=== PATIENT | male | born 1950 | race Two or more races ===

== ENCOUNTER 2017-08-14 12:01 | Inpatient (IN) | payer MEDICARE, OTHER ==
[~2017-08-14] VITALS: Ht 172.7 cm; Wt 118.5 kg
[2017-08-14 14:23] LABS: Urine Bacteria NONE SEEN /hpf (None Seen); Urine Blood Negative /uL (Negative); Urine Mucus FEW (None Seen); Urine Specific Gravity 1.035 (1.001-1.035); Urine WBC 2 /hpf (0 - 3)
[2017-08-14 14:42] LABS: Basophils # (auto) 0 uL; Basophils % (auto) 0.3 % (0.0-2.0); Eosinophils # (auto) 0 uL; Hemoglobin 13.3 g/dL (13.5-17.5); Lymphocytes # (auto) 0.8 uL; Mean Corpuscular Hgb Conc. 32.1 g/dL (32.0-36.0); Monocytes # (auto) 0.6 uL; Neutrophils # (auto) 12.5 uL; Nucleated Red Blood Cells % 0.1 %; White Blood Cell 13.9 10^3/uL (4.4-10.8)
[2017-08-14 14:44] LABS: Hematocrit 41.4 % (41.0-53.0); Lymphocytes % (auto) 5.6 % (10.0-50.0); Mean Corpuscular Hemoglobin 24.1 pg (28.0-32.0); Mean Corpuscular Volume 75.2 fL (80.0-100.0); Monocytes % (auto) 4.3 % (0.0-12.0); Neutrophils % (auto) 89.8 % (37.0-80.0); Platelet Count (auto) 180 10^3/uL (140-450); Red Blood Cells 5.51 10^6/uL (4.5-5.90); Red Cell Distribution Width 15.4 % (11.8-14.3)
[2017-08-14 15:18] LABS: Amylase 43 U/L (25-115); Lipase 66 U/L (73-393)
[2017-08-14 15:22] LABS: Alanine Aminotransferase 109 U/L (16-61); Albumin 3.9 g/dL (3.4-5.0); Alkaline Phosphatase 98 U/L (45-117); Anion Gap 9 (5-15); Aspartate Aminotransferase 94 U/L (15-37); BUN/Creatinine Ratio 19.8; Bilirubin, Total 0.8 mg/dL (0.2-1.0); Blood Urea Nitrogen 16 mg/dL (7-18); Calcium 8.8 mg/dL (8.5-10.1); Carbon Dioxide 28 mmol/L (21-32); Chloride 105 mmol/L (98-107); GFR African American 123 mL/min; GFR Non-African American 102 mL/min; Glucose 148 mg/dL (74-106); Magnesium 2.8 mg/dL (1.6-2.6); Sodium 142 mmol/L (136-145); Total Protein 7.9 g/dL (6.4-8.2)
[2017-08-14] MEDS ORDERED: ONDANSETRON HCL 4 MG/2 ML VIAL IV ONE (16:00)
[2017-08-14] MEDS ORDERED: MORPHINE SULFATE 8mg/ml INJ SDV IV ONE ×2 (16:00→17:45)
[2017-08-14] MEDS ORDERED: MORPHINE SULFATE 10 MG/ML INJ 1ML SDV IV ONE (16:15)
[2017-08-14] MEDS ORDERED: PIPERACILLIN-TAZO 4.5GM 100 ML IV ONE (16:45)
[2017-08-14] MEDS ORDERED: metroNIDAZOLE 500MG/100ML 100 ML IV ONE (16:45)
[2017-08-14] MEDS ORDERED: MORPHINE SULFATE 10 MG/5 ML ORAL SOLN PO ONE (18:30)
[2017-08-14] MEDS ORDERED: cefTRIAXone 1GM/10ml IVPUSH 10 ML IV ONE (18:45)
[2017-08-14] MEDS ORDERED: DEXTROSE (50%) 50ML SYRG IV PRN (18:45)
[2017-08-14] MEDS ORDERED: ENALAPRILAT 1.25 MG/ML-1ML VIAL IV PRN (18:45)
[2017-08-14] MEDS ORDERED: cloNIDine HCL 0.1 MG TAB PO PRN (18:45)
[2017-08-14] MEDS: SODIUM CHLORIDE 0.9% 1,000 ML IV SCH (19:29)
[2017-08-14] MEDS ORDERED: TEMAZEPAM 15 MG CAP PO PRN (19:30)
[2017-08-14] MEDS ORDERED: DOCUSATE SOD 100 MG CAP PO PRN (19:30)
[2017-08-14] MEDS ORDERED: ACETAMINOPHEN 325 MG TAB PO PRN (19:30)
[2017-08-14] MEDS ORDERED: ONDANSETRON HCL 4 MG/2 ML VIAL IV PRN (19:30)
[2017-08-14] MEDS ORDERED: MORPHINE SULFATE 8mg/ml INJ SDV IV PRN (19:30)
[2017-08-14] MEDS: metroNIDAZOLE 500MG/100ML 100 ML IV SCH (19:43)
[2017-08-14] MEDS ORDERED: SODIUM CHLORIDE 0.9% 2,000 ML IV ONE (19:45)
[2017-08-14] MEDS: HYDROcodone-ACET 5/325MG TAB PO PRN (19:52)
[2017-08-14 21:36] LABS: INR 0.98 (0.9-1.15); Prothrombin Time 10.5 sec (9.27-12.13)
[2017-08-14] MEDS: InsuLIN REG 1unit/0.01ml Soln (100units/ml) SC SCH (22:00)
[2017-08-14] MEDS: ACCU-CHEK COMFORT CURVE STRIP VI SCH (22:00)
[2017-08-14] MEDS ORDERED: IBUP600T27 PO (22:02)
[2017-08-14] MEDS: ASCORBIC ACID 500 MG TAB PO SCH (22:29)
[2017-08-15 00:02] VITALS: BP 127/71
[2017-08-15] MEDS: SODIUM CHLORIDE 0.9% 1,000 ML IV SCH ×3 (04:33→21:56)
[2017-08-15 05:44] VITALS: BP 126/74
[2017-08-15] MEDS: ACCU-CHEK COMFORT CURVE STRIP VI SCH ×2 (05:58→11:27)
[2017-08-15] MEDS: InsuLIN REG 1unit/0.01ml Soln (100units/ml) SC SCH ×2 (05:58→11:27)
[2017-08-15] MEDS: metroNIDAZOLE 500MG/100ML 100 ML IV SCH ×3 (05:58→21:56)
[2017-08-15 06:49] LABS: Basophils # (auto) 0 uL; Basophils % (auto) 0.3 % (0.0-2.0); Eosinophils # (auto) 0.1 uL; Eosinophils % (auto) 0.7 % (0.0-7.0); Hematocrit 38.9 % (41.0-53.0); Hemoglobin 12.6 g/dL (13.5-17.5); Lymphocytes # (auto) 1.2 uL; Lymphocytes % (auto) 12.3 % (10.0-50.0); Mean Corpuscular Hemoglobin 24.6 pg (28.0-32.0); Mean Corpuscular Hgb Conc. 32.3 g/dL (32.0-36.0); Mean Corpuscular Volume 76.3 fL (80.0-100.0); Monocytes # (auto) 0.7 uL; Monocytes % (auto) 7.4 % (0.0-12.0); Neutrophils # (auto) 7.8 uL; Neutrophils % (auto) 79.3 % (37.0-80.0); Platelet Count (auto) 149 10^3/uL (140-450); Red Cell Distribution Width 15.2 % (11.8-14.3); White Blood Cell 9.8 10^3/uL (4.4-10.8)
[2017-08-15 07:04] LABS: Albumin 3.1 g/dL (3.4-5.0); Bilirubin, Total 0.8 mg/dL (0.2-1.0); Calcium 7.7 mg/dL (8.5-10.1); Total Protein 6.8 g/dL (6.4-8.2)
[2017-08-15 07:16] VITALS: BP 138/61
[2017-08-15] MEDS: cefTRIAXone 1GM/10ml IVPUSH 10 ML IV SCH (09:20)
[2017-08-15] MEDS: MULTIPLE VITAMIN TAB PO SCH (09:21)
[2017-08-15] MEDS: ASCORBIC ACID 500 MG TAB PO SCH ×2 (09:21→21:56)
[2017-08-15] MEDS: ZINC SULFATE 220 MG CAP PO SCH (09:21)
[2017-08-15 11:59] VITALS: BP 124/85
[2017-08-15 16:00] VITALS: BP 134/76
[2017-08-15 22:57] VITALS: BP 102/53
[2017-08-16 04:54] VITALS: BP 102/54
[2017-08-16] MEDS: metroNIDAZOLE 500MG/100ML 100 ML IV SCH ×3 (05:54→21:51)
[2017-08-16 06:54] LABS: INR 1.03 (0.9-1.15); Partial Thromboplastin Time 27.9 sec (23.78-33.04)
[2017-08-16] MEDS ORDERED: ceFAZolin 1GM/100ML 100 ML IV ONE (07:18)
[2017-08-16] MEDS ORDERED: SUCCINYLCHOLINE CHLORIDE 20 MG/ML 10ML VIAL IV ONE (07:19)
[2017-08-16] MEDS ORDERED: LIDOCAINE HCL 2 %PF INJ 10ML AMP IJ ONE (07:26)
[2017-08-16] MEDS ORDERED: MIDAZOLAM HCL 1MG/1ML-2 ML VIAL ONE (07:26)
[2017-08-16] MEDS ORDERED: PROPOFOL 10 MG/ML 20 ML IV ONE (07:26)
[2017-08-16] MEDS ORDERED: ROCURONIUM 10MG/ML 10ML VIAL IV ONE (07:27)
[2017-08-16] MEDS ORDERED: ONDANSETRON HCL 4 MG/2 ML VIAL IV ONE (07:45)
[2017-08-16] MEDS ORDERED: MORPHINE SULFATE 8mg/ml INJ SDV IV PRN (07:45)
[2017-08-16] MEDS ORDERED: ACCU-CHEK COMFORT CURVE STRIP VI ONE (07:45)
[2017-08-16] MEDS ORDERED: NALOXONE HCL 0.4 MG/ML VIAL IV PRN (07:45)
[2017-08-16] MEDS ORDERED: fentaNYL CITRATE 100 MCG/2 ML VL ONE (08:02)
[2017-08-16] MEDS ORDERED: KETOROLAC TROMETH 30 MG/ML 1ML VIAL ONE (08:23)
[2017-08-16] MEDS ORDERED: ePHEDrine SULFATE 50 MG/ML AMP ONE (08:26)
[2017-08-16] MEDS ORDERED: ATROPINE SULF 0.5 MG/5ML SYR ONE (08:31)
[2017-08-16] MEDS ORDERED: ATROPINE SULFATE 0.4 MG/1 ML VIAL ONE (08:32)
[2017-08-16] MEDS ORDERED: GLYCOPYRROLATE 0.2 MG/ML 1ML VIAL ONE (08:41)
[2017-08-16] MEDS ORDERED: NEOSTIGMINE 1 MG/ML INJ (10mg/10ML VIAL) ONE (08:41)
[2017-08-16] MEDS: cefTRIAXone 1GM/10ml IVPUSH 10 ML IV SCH (09:00)
[2017-08-16] MEDS: ASCORBIC ACID 500 MG TAB PO SCH ×2 (09:47→21:50)
[2017-08-16] MEDS: MULTIPLE VITAMIN TAB PO SCH (09:47)
[2017-08-16] MEDS: ZINC SULFATE 220 MG CAP PO SCH (09:47)
[2017-08-16] MEDS: SODIUM CHLORIDE 0.9% 1,000 ML IV SCH (11:33)
[2017-08-16 13:00] VITALS: BP 101/58
[2017-08-16 17:00] VITALS: BP 104/60
[2017-08-16 22:00] VITALS: BP 113/65
[2017-08-17] VITALS (7 sets, daily range): BP systolic 103–122; BP diastolic 67–74
[2017-08-17] MEDS: SODIUM CHLORIDE 0.9% 1,000 ML IV SCH ×2 (01:00→15:16)
[2017-08-17] MEDS: metroNIDAZOLE 500MG/100ML 100 ML IV SCH ×3 (05:59→22:00)
[2017-08-17] MEDS: HYDROcodone-ACET 5/325MG TAB PO PRN (09:56)
[2017-08-17] MEDS: cefTRIAXone 1GM/10ml IVPUSH 10 ML IV SCH (09:56)
[2017-08-17] MEDS: ASCORBIC ACID 500 MG TAB PO SCH ×2 (09:56→21:59)
[2017-08-17] MEDS: ZINC SULFATE 220 MG CAP PO SCH (09:56)
[2017-08-17] MEDS: MULTIPLE VITAMIN TAB PO SCH (09:57)
[2017-08-18] MEDS: SODIUM CHLORIDE 0.9% 1,000 ML IV SCH (03:47)
[2017-08-18 05:00] VITALS: BP 116/81
[2017-08-18] MEDS: metroNIDAZOLE 500MG/100ML 100 ML IV SCH ×2 (06:14→14:24)
[2017-08-18 08:00] VITALS: BP_SYST 118; BP_SYST 127; BP_DIAS 51; BP_DIAS 78
[2017-08-18] MEDS ORDERED: TRAM50TA2 PO (09:45)
[2017-08-18] MEDS ORDERED: DOCU-94 PO (09:46)
[2017-08-18] MEDS ORDERED: PANT40TA2 PO (09:46)
[2017-08-18] MEDS: MULTIPLE VITAMIN TAB PO SCH (09:50)
[2017-08-18] MEDS: ASCORBIC ACID 500 MG TAB PO SCH (09:50)
[2017-08-18] MEDS: cefTRIAXone 1GM/10ml IVPUSH 10 ML IV SCH (09:50)
[2017-08-18] MEDS: ZINC SULFATE 220 MG CAP PO SCH (09:50)
[2017-08-18] MEDS: HYDROcodone-ACET 5/325MG TAB PO PRN ×2 (09:51→16:19)
[2017-08-18 11:00] VITALS: BP 125/67
[2017-08-18 15:00] VITALS: BP 113/66
== END 2017-08-18 16:38 | disposition home or self-care (01) | DRG 418 ==
LOC: ER 12:04 → OVERFLOW 12:05 → WEST WING 20:55
PROVIDERS: ADMIT Internal Medicine; ATTEND Internal Medicine
PROC: 0FT44ZZ Resection of Gallbladder, Percutaneous Endoscopic Approach (ICD-10-PCS; principal; 2017-08-16 07:46)
DX: K80.00 Calculus of gallbladder with acute cholecystitis without obstruction (principal); R65.10 Systemic inflammatory response syndrome (SIRS) of non-infectious origin without acute organ dysfunction; E66.01 Morbid (severe) obesity due to excess calories; E11.9 Type 2 diabetes mellitus without complications; K42.9 Umbilical hernia without obstruction or gangrene; Z68.39 Body mass index [BMI] 39.0-39.9, adult; D63.8 Anemia in other chronic diseases classified elsewhere; E83.41 Hypermagnesemia; E86.0 Dehydration; G47.30 Sleep apnea, unspecified
CPT/HCPCS: 36415; 71045; 74176; 76705; 80053; 81001; 82150; 82247; 82962; 83036; 83690; 83735; 84484; 85025; 85610; 85730; 86850; 86900; 86901; 87040; 93005; 96365; 96375; 97116; 97163; 97530; J0330; J0461; J0690; J1885; J2250; J2405; J2543; J2704; J3490

== ENCOUNTER → 2017-09-15 | Outpatient (CLI) | payer MEDICARE, OTHER ==
[~2017-09-15] MED LIST: DOCU-94 PO; PANT40TA2 PO; TRAM50TA2 PO
[2017-09-15 14:18] LABS: Potassium 4.2 mmol/L (3.5-5.1)
[2017-09-15 14:19] LABS: Albumin 3.5 g/dL (3.4-5.0); BUN/Creatinine Ratio 18.1; Bilirubin, Total 0.6 mg/dL (0.2-1.0); Calcium 8.3 mg/dL (8.5-10.1); Total Protein 7.6 g/dL (6.4-8.2)
== END | disposition home or self-care (01) ==
LOC: LAB 12:43
PROVIDERS: ATTEND Internal Medicine
DX: E11.9 Type 2 diabetes mellitus without complications (principal)
CPT/HCPCS: 36415; 80053; 80061; 83036

== ENCOUNTER → 2017-11-01 | Outpatient (CLI) | payer MEDICARE, OTHER ==
[2017-11-01 11:47] LABS: Urine Bacteria NONE SEEN /hpf (None Seen); Urine Blood Negative /uL (Negative); Urine Mucus FEW (None Seen); Urine Specific Gravity 1.025 (1.001-1.035); Urine WBC 3 /hpf (0 - 3)
[2017-11-01 12:11] LABS: Cholesterol 196 mg/dL (< 200); HDL Cholesterol 42 mg/dL (40-59); LDL Cholesterol 133 mg/dL (< 100); Triglycerides 144 mg/dL (< 150)
== END | disposition home or self-care (01) ==
LOC: LAB 10:56
PROVIDERS: ATTEND Internal Medicine
DX: Z12.11 Encounter for screening for malignant neoplasm of colon (principal); E11.9 Type 2 diabetes mellitus without complications
CPT/HCPCS: 36415; 80061; 81001; 82043

== ENCOUNTER → 2017-11-07 | Outpatient (CLI) | payer MEDICARE, OTHER | END | disposition home or self-care (01) | LOC: LAB 15:22 | PROVIDERS: ATTEND Internal Medicine | DX: Z12.11 Encounter for screening for malignant neoplasm of colon (principal); E11.9 Type 2 diabetes mellitus without complications | CPT/HCPCS: 82270 ==

== ENCOUNTER → 2018-03-21 | Outpatient (CLI) | payer MEDICARE, OTHER ==
[2018-03-21 13:53] LABS: Albumin 3.7 g/dL (3.4-5.0)
[2018-03-21 13:58] LABS: Bilirubin, Direct 0.2 mg/dL (0-0.2); Bilirubin, Total 0.5 mg/dL (0.2-1.0); Total Protein 7.6 g/dL (6.4-8.2)
== END | disposition home or self-care (01) ==
LOC: LAB 13:13
PROVIDERS: ATTEND Internal Medicine
DX: E78.5 Hyperlipidemia, unspecified (principal)
CPT/HCPCS: 36415; 80061; 80076